=== PATIENT | female | born 2005 | race Caucasian/White ===

== ENCOUNTER 2025-05-02 17:54 | Observation (INO) | payer OTHER, SELFPAY ==
--- NOTE | ~2025-05-02 | CT_ITS ---
CT abdomen pelvis w con INDICATION:ALL OVER ABDOMEN PAIN X 4 HOURS/NAUSEA . COMPARISON: None. TECHNIQUE: Axial images of the abdomen and pelvis were obtained following infusion of 100 mL Isovue 300. Dose optimization technique was utilized. FINDINGS: The lung bases are clear. There is severe periportal edema. No intrahepatic mass or ductal dilatation is evident. Gallbladder is contracted. There is pericholecystic fluid. The pancreas and spleen are normal in appearance. The adrenal glands are symmetric in size. The kidneys demonstrate symmetric uptake and excretion of contrast. No cystic mass is evident. There is no solid mass. There is no hydronephrosis. Evaluation of the stomach and bowel loops are limited due to lack of oral contrast. The appendix is normal in appearance. The bladder and rectum are normal. The uterus and both adnexa are unremarkable. No free intraperitoneal fluid or air is evident. There is no significant retroperitoneal lymphadenopathy. The aorta, visceral vessels and renal arteries demonstrate normal caliber and patency. The lower thoracic and lumbar vertebrae are in normal alignment. IMPRESSION: Extensive periportal edema. There is pericholecystic fluid. Gallbladder is contracted and no gallstones are seen. All CT scans at this facility are performed using low dose modulation techniques as appropriate to perform exam including the following: automated exposure control; use of iterative reconstruction technique; adjustment of the mA and/or kV according to patient size (this includes techniques or standardized protocols for targeted exams where dose is matched to indication/reason for exam). Reviewed, dictated and finalized at location S. RAIL HELPER IMPRESSION: Extensive periportal edema. There is pericholecystic fluid. Gallbladder is contracted and no gallstones are seen. All CT scans at this facility are performed using low dose modulation techniqu es as appropriate to perform exam including the following: automated exposure c ontrol; use of iterative reconstruction technique; adjustment of the mA and/or kV according to patient size (this includes techniques or standardized protocol s for targeted exams where dose is matched to indication/reason for exam).
[2025-05-02 17:55] VITALS: BP 115/78; PULSE 78; RESP 19; TEMP 36.8; O2SAT 100
--- NOTE | 2025-05-02 18:03 | ED_ITS ---
HPI - Nausea/Vomiting/Diarrhea General Chief complaint: Nausea/Vomiting/Diarrhea Stated complaint: vomiting Time Seen by Provider: 05/02/25 18:03 Source: patient Mode of arrival: ambulatory Limitations: no limitations History of Present Illness HPI Narrative: 19 years old white female came to the ED from home by private car with her mom telling me that she started having suprapubic abdominal pain and frequent vomiting over the last 3 hours associated with hot/cold feeling. Patient unable to keep anything down. Currently complaining of sore throat. Patient started her period today, does not know if she had diarrhea or not. Related Data Home Medications ?Medication ?Instructions ?Recorded ?Confirmed ?Last Taken ?Type No Home Medications 05/02/25 05/02/25 U nknown History Allergies Allergy/AdvReac Type Severity Reaction Status Date / Time No Known Allergies Allergy Verified 05/02/25 17:59 Review of Systems 2 Review of Systems: All systems reviewed & are unremarkable except as noted in HPI and below Exam 2 Narrative: General appearance: Well-developed, well-nourished Skin: Pale Head: Normocephalic, nontraumatic Eyes: Clear conjunctiva ENT: Oropharyngeal erythema Neck: Supple, nontender Chest and respiratory: Airway patent, no respiratory distress, no accessory muscle use Heart: Regular rate/rhythm Abdomen: Diffuse abdominal tenderness, quite bowel sounds, no guarding or rebound Musculoskeletal: Normal range of motion, nontender back Neurologic: Alert and oriented ?3, SOLE SPLITTER is normal as tested, no gross motor deficit Course Vital Signs Vital signs: Vital Signs Temperature 36.8 C 05/02/25 17:55 Pulse Rate 78 05/02/25 17:55 Respiratory Rate 19 05/02/25 17:55 Blood Pressure 115/78 05/02/25 17:55 Pulse Oximetry 100 05/02/25 17:55 Oxygen Delivery Room Air 05/02/25 17:55 Temperature 36.7 C 05/02/25 19:49 Pulse Rate 98 05/02/25 19:49 Respiratory Rate 20 05/02/25 19:49 Blood Pressure 114/75 05/02/25 19:49 Pulse Oximetry 100 05/02/25 19:49 Oxygen Delivery Room Air 05/02/25 19:49 MDM - Nausea/Vomiting/Diarrhea MDM Narrative Medical decision making narrative: Patient came with nausea vomiting abdominal pain sore throat started 3-4 hour prior to arrival Vital signs are stable Physical examination showing ill looking patient, pale with diffuse abdominal tenderness Differential diagnosis viral infection, dehydration, electrolyte imbalance, colitis, diverticulitis, urinary tract infection, , anemia Blood workup today includes CBC, CMP, lipase showed WBC 16.8, otherwise within normal limit Patient tested negative for COVID flu and RSV Patient tested negative for strep throat and mono. CT abdomen and pelvis with IV contrast showed pericholecystic fluid. Gallbladder is contracted and no gallstones seen, extensive periportal edema which can be see in healthy individual after conception large amount of fluid. Other causes congestive heart failure, hepatitis, pyelonephritis, lymphoma, trauma which ruled out by our workup today, obstruction of the portal vein ruled out by our workup today. Urinalysis showed no significant abnormality DIAGNOSIS: VOMITING PATIENT WAS NOT ABLE TO KEEP FLUIDS OR CRACKERS DOWN, ADMIT TO HOSPITALIST, OBSERVATION. Differential Diagnosis Differential diagnosis: Likely other (As above) Medical Records Attestation: I reviewed the patient's medical records. Lab Data Attestation: I reviewed the patient's lab results. 05/02/25 18:22 05/02/25 18:22 Labs: Lab Results 05/02/25 05/02/25 05/02/25 Range/Units 18:10 18:21 18:22 WBC 16.8 H (4.8-10.8) K/mm3 RBC 3.92 L (4.20-5.40) M/mm3 Hgb 11.6 L (12.0-15.0) g/dL Hct 35.3 (35.0-49.0) % MCV 90.1 (78.0-102.0) fL MCH 29.6 (27.0-31.0) pg MCHC 32.9 (32-36) g/dL RDW 12.1 (11.6-14.4) % Plt Count 221 (150-420) K/mm3 MPV 10.9 (9.2-11.8) fl Immature Gran % (Auto) 0.5 H (0.0-0.0) % Neut % (Auto) 87.9 H (50.0-70.0) % Lymph % (Auto) 5.9 L (18.0-42.0) % [place] % (Auto) 5.2 (2.0-11.0) % Eos % (Auto) 0.3 L (1.0-6.0) % Baso % (Auto) 0.2 (0.0-1.0) % Lymph # (Auto) 0.99 L (1.10-4.50) K/mm3 [place] # (Auto) 0.88 (0.10-0.90) K/mm3 Eos # (Auto) 0.05 (0.02-0.50) K/mm3 Baso # (Auto) 0.04 (0.00-0.10) K/mm3 Abs Immat Gran (auto) 0.09 H (0.00-0.00) K/mm3 Absolute Neuts (auto) 14.72 H (1.70-7.20) K/mm3 Absolute Nucleated RBC 0.00 (0.00-0.00) K/mm3 Nucleated RBC % 0.0 (0-0.0) % Sodium 140 (134-143) mmol/L Potassium 3.4 (3.4-5.0) mmol/L Chloride 109 H (98-107) mmol/L Carbon Dioxide 21 L (22-30) mmol/L Anion Gap 10 (4-12) mmol/L BUN 8 (8-21) mg/dL Creatinine 0.82 (0.7-1.0) mg/dL Estim Creat Clear Calc 75 ml/min Estimated GFR > 60 (59 - ) Glucose 125 H (65-110) mg/dL Calculated Osmolality 289 (285-295) mOsm/kg Calcium 9.0 (8.9-10.7) mg/dL Total Bilirubin 1.5 H (0.2-1.3) mg/dL AST 35 (14-36) U/L ALT 22 (6-35) U/L Alkaline Phosphatase 43 L (45-116) U/L Total Protein 7.6 (6.3-8.6) g/dL Albumin 4.8 (3.7-5.6) g/dL Lipase 84 (23-300) U/L Serum HCG, Qual Negative Urine Color Light yellow (Yellow) Urine Appearance Clear (Clear) Urine pH 6.0 (5.0-8.0) Ur Specific [place] 1.015 (1.010-1.020) Urine Protein Trace H (Negative) Urine Glucose (UA) Negative (Negative) Urine Ketones Trace H (Negative) Ur Blood (Man) 1+ H (Negative) Urine Nitrate Negative (Negative) Urine Bilirubin Negative (Negative) Urine Urobilinogen 0.2 (0.2-1.0) mg/dL Leukocyte Esterase Rfl Negative (Negative) JORGE L/UL Urine RBC None seen (0-2) /hpf Urine WBC 0-3 (0-3) /hpf Ur Squamous Epith Cells Few (Few) /hpf Urine Bacteria Trace (None) /hpf Monoscreen Negative (Negative) Influenza A (RT-PCR) Negative (Negative) Influenza B (RT-PCR) Negative (Negative) RSV (RT-PCR) Negative (Negative) SARS-CoV-2 RNA (RT-PCR) Negative (Negative) Group A Strep (PCR) Not detected (Negative) Discharge Plan Discharge Clinical Impression: Vomiting Patient Disposition: Still a Patient Condition: Guarded Prognosis Additional Instructions: ADMIT TO HOSPITALIST Patient Language: [place] Prescriptions: No Action No Home Medications Follow-up/Referrals: UNKNOWN,DOCTOR [Non-Staff]
[2025-05-02] MEDS: ONDANSETRON INJ 4 MG/2 ML VIAL 8 MG IV PUSH (18:28)
[2025-05-02] MEDS: SODIUM CHLORIDE 0.9% IV 1,000 ML 999 ML IV CONT (18:28)
--- NOTE | 2025-05-02 18:32 | PC.NURSE ---
Covid culture sent to lab
--- OUTSIDE RECORDS SUMMARY | 2025-05-02 18:32 | XMS_ITS | Clinical Summary ---
Author Organization [facility] Address [address] [place] [address] Care Team Providers Care Neonatal Critical Care Nurse Name Role Phone Unavailable Primary Care Provider Unavailabl e Source Comments [facility],non-owned Affiliates and Associated Physician Practices is amultiple site organization consisting of ambulatory clinics and hospital sitesin [place], [place], [place] and [place]. This disclosure is being madepursuant to the Care Everywhere program and may not contain all information available regarding this patient. Last updated 18.[facility] [employer] Allergies No known active allergies Medications * Be aware that medications may not be up to date on this document. Alwaysverify current medications with the patient. No known medications Social History Tobacco Use Types Packs/Day Years Used Date Smoking Tobacco: Never Smokeless Tobacco: Never Comments Unknown Sex and Gender Information Value Date Recorded Sex Assigned at Not on file Legal Sex Female 5:44 AM [employer] SU[employer] Gender Identity Not on file Sexual Orientation Not on file Last Filed Vital Signs Vital Sign Reading Time Taken Comments Blood Pressure 90/56 12/01/2017 2:42 PM CDT Pulse 82 12/01/2017 2:42 PM CDT Temperature 36.7 C (98.1 F) 12/01/2017 2:42 PM CDT Respiratory Rate 20 12/01/2017 2:42 PM CDT Oxygen Saturation 98% 12/01/2017 2:42 PM CDT Inhaled Oxygen Concentration - - Weight 37.2 kg (82 lb) 12/01/2017 2:42 PM CDT Height 142 cm (4' 7.91) 12/01/2017 2:42 PM CDT Body Mass Index 18.45 12/01/2017 2:42 PM CDT Body Mass Index Percentile 50.40% 12/01/2017 2:4 2 PM CDT Growth Chart: [facility] (Girls, 2- 20 Years) Plan of Treatment Health Maintenance Due Date Last Done Comments HIV SCREENING 2020 HPV VACCINE (1 - 3-dose series) 2020 CHLAMYDIA/GONORRHEA SCREENING 2021 MENINGOCOCCAL (Group B) VACC INE SHARED DECISION-MAKING (1 of 2 - Standard) 2021 HEPATITIS C SCREENING 05/12/2023 DTAP/TDAP/TD VACCINES (1 - Tdap) 2024 HEPATITIS B VACCINE (1 of 3 - 19+ 3-dose series) 2024 DEPRESSION SCREENING 06/30/2024 COVID-19 VACCINE (1 - 2023-2 5 season) 2025 INFLUENZA VACCINE (#1) 2025 ZOSTER VACCINE (1 of 2) 2055 HIB VACCINE Aged Out No longer eligi ble based on patient's age to complete this topic MENINGOCOCCAL GROUPS A/C/Y/W VACCINE Aged Out No longer eligible b ased on patient's age to complete this topic PNEUMOCOCCAL VACCINE Aged Out No long er eligible based on patient's age to complete this topic
[2025-05-02 18:34] LABS: Hematocrit 35.3 % (35.0-49.0); Hemoglobin 11.6 g/dL (12.0-15.0); Immature Granulocyte Percent A 0.5 % (0.0-0.0); Lymphocytes Absolute Auto 0.99 K/mm3 (1.10-4.50); Mean Corpuscular HGB Conc 32.9 g/dL (32-36); Mean Corpuscular Hemoglobin 29.6 pg (27.0-31.0); Mean Corpuscular Volume 90.1 fL (78.0-102.0); Nucleated Red Blood Cells Absolute Auto 0.00 K/mm3 (0.00-0.00); Nucleated Red Blood Cells Perc 0.0 % (0-0.0); Platelet Count Result 221 K/mm3 (150-420); Red Blood Count 3.92 M/mm3 (4.20-5.40); White Blood Count 16.8 K/mm3 (4.8-10.8)
[2025-05-02 18:39] LABS: Add Urine Microscopic? YES; Appearance Urine Clear (Clear); Glucose Urine UA Negative (Negative); Leukocyte Esterase Ur Negative LEU/UL (Negative); Nitrate Urine Negative (Negative); Specific Grav Ur 1.015 (1.010-1.020)
[2025-05-02 18:52] LABS: Alanine Aminotransferase 22 U/L (6-35); Albumin Level 4.8 g/dL (3.7-5.6); Alkaline Phosphatase 43 U/L (45-116); Anion Gap 10 mmol/L (4-12); Aspartate Amino Transferase 35 U/L (14-36); Bilirubin,Total 1.5 mg/dL (0.2-1.3); Blood Urea Nitrogen 8 mg/dL (8-21); Calcium 9.0 mg/dL (8.9-10.7); Carbon Dioxide 21 mmol/L (22-30); Chloride 109 mmol/L (98-107); Estimated CRCL calculation 75 ml/min; Estimated Glomerular Filt Rate > 60; Glucose 125 mg/dL (65-110); Lipase 84 U/L (23-300); Osmolality Calculated 289 mOsm/kg (285-295); Potassium 3.4 mmol/L (3.4-5.0); SPREG INTERNAL CONTROL Positive; Serum Qual hCG Negative; Sodium 140 mmol/L (134-143); Total Protein 7.6 g/dL (6.3-8.6)
[2025-05-02 18:54] LABS: Negative Monotest Control Negative (Negative); Positive Monotest Control Positive (Positive)
[2025-05-02 19:07] LABS: Strep Group A RT-PCR NOT DETECTED (Negative)
--- NOTE | 2025-05-02 19:07 | PC.NURSE ---
Report received, pt resting w/mom at bedside. Fluids complete, awaiting CT scan as per order.
[2025-05-02 19:13] LABS: Influenza A QL RT-PCR Negative (Negative); Influenza B QL RT-PCR Negative (Negative); RSV RNA, RT-PCR Negative (Negative); SARS-CoV-2 RNA PCR Negative (Negative)
--- NOTE | 2025-05-02 19:48 | PC.NURSE ---
ERp Dr Awad in to speak w/ pt and her mother, pt still c/o feeling weak and nauseated. Dr ordered to give pt a few saltine crackers and drink to see if pt is able to tolerate keeping it down. If able POC to send home, if still nauseated or vomiting, pt will be admitted. Pt given saltine crackers and white soda to sip on.
[2025-05-02 19:49] VITALS: BP 114/75; PULSE 98; RESP 20; TEMP 36.7; O2SAT 100
--- NOTE | 2025-05-02 21:25 | PC.NURSE ---
Pt c/o still not feeling well, she is pale in color and weak and unable to keep much food or drink down w/o feeling very nauseated, pt wanting to stay for admission overnight. Dr Awad informed, pt will be 23 hr obs.
[2025-05-02] MEDS: METOCLOPRAMIDE HCL INJ 10 MG/2 ML VIAL IV PUSH (21:35)
[2025-05-02] MEDS: SODIUM CHLORIDE 0.9% IV 1,000 ML 100 ML IV CONT (21:39)
--- NOTE | 2025-05-02 21:47 | PC.NURSE ---
Called report to LE[facility] Echevarria on 2nd floor, pt will go to rm 205.
--- NOTE | 2025-05-02 21:49 | PC.NURSE ---
Call placed to ED, given room 205 for admission, awaiting patient.
[2025-05-02 22:20] VITALS: BP 110/64; PULSE 100; RESP 20; TEMP 36.6; O2SAT 98; BMI 19.3
--- NOTE | 2025-05-02 22:28 | ADMGEN ---
This patient, Osiris Thurston, was admitted to 2nd Floor Room 205-1. Patient/family oriented to hospital policies and general routines including ID bracelet, bed and alarms, visiting hours, pain management, procedures, bathroom and other care routines, personal items, smoking policy, room service/diet, and visiting hours. Information on how to activate the Rapid Response Team has been discussed. Patient/Family are encouraged to report perceived risks to care and to ask questions if they do not understand what they are told or what they should do.
[2025-05-02 22:33] VITALS: PULSE 98; RESP 20; O2SAT 100
[2025-05-03] VITALS: BP 122/73; PULSE 76; RESP 18; TEMP 37.2; O2SAT 100
[2025-05-03] MEDS: ONDANSETRON INJ 4 MG/2 ML VIAL IV PUSH (00:12)
--- NOTE | 2025-05-03 07:08 | PC.NURSE ---
Patient refuses another bag of NS at this time, wants to wait until she speaks to SALES AND SERVICE REPRESENTATIVE r/t no N/V through the night.
--- NOTE | 2025-05-03 07:31 | P.HP_ITS ---
H&P: HPI History of Present Illness Date/Time: 05/03/25 07:31 [facility] Social History Social History Smoking status: Never smoker Second hand tobacco smoke exposure: No Alcohol intake: never Substance use: current Substance use type: does not use Lack of Transportation: No Lack of Food: Never True Current Housing: I Have Housing Concerned About Future Housing: No Difficulty Paying Gas/Electric Bills: No Difficulty Paying for Meds: No Currently Unemployed: No Education: High School Diploma/GED Difficulty w/ Childcare or Family Care: No Spiritual care concerns: No Meds Home Medications and Allergies Home Medications ?Medication ?Instructions ?Recorded ?Confirmed ?Type No Home Medications 05/02/25 05/02/25 H istory Allergies Allergy/AdvReac Type Severity Reaction Status Date / Time No Known Allergies Allergy Verified 05/02/25 22:28 Vital Signs Vital Signs - 24 hr 05/02/25 17:55 05/02/25 19:49 05/02/25 22:20 Temperature 98.2 F 98.0 F 98 F Pulse Rate 78 98 100 Respiratory Rate 19 20 20 Blood Pressure 115/78 114/75 110/64 Pulse Oximetry 100 100 98 Oxygen Delivery Room Air Room Air Room Air 05/02/25 22:33 05/03/25 00:00 Temperature 98.9 F Pulse Rate 98 76 Respiratory Rate 20 18 Blood Pressure 122/73 Pulse Oximetry 100 100 Oxygen Delivery Room Air Room Air H&P: Results Labs Labs: Short CBC 05/02/25 Range/Units 18:22 WBC 16.8 H (4.8-10.8) K/mm3 Hgb 11.6 L (12.0-15.0) g/dL Hct 35.3 (35.0-49.0) % Plt Count 221 (150-420) K/mm3 BMP 05/02/25 18:22 Sodium 140 Potassium 3.4 Chloride 109 H Carbon Dioxide 21 L BUN 8 Creatinine 0.82 Glucose 125 H Calcium 9.0 Liver Function 05/02/25 Range/Units 18:22 Total Bilirubin 1.5 H (0.2-1.3) mg/dL AST 35 (14-36) U/L ALT 22 (6-35) U/L Alkaline Phosphatase 43 L (45-116) U/L Albumin 4.8 (3.7-5.6) g/dL Urine 05/02/25 Range/Units 18:10 Urine Color Light yellow (Yellow) Urine Appearance Clear (Clear) Urine pH 6.0 (5.0-8.0) Ur Specific [place] 1.015 (1.010-1.020) Urine Protein Trace H (Negative) Urine Glucose (UA) Negative (Negative)
[2025-05-03 07:50] LABS: Hematocrit 32.4 % (35.0-49.0); Hemoglobin 10.7 g/dL (12.0-15.0); Immature Granulocyte Percent A 0.4 % (0.0-0.0); Lymphocytes Absolute Auto 1.08 K/mm3 (1.10-4.50); Mean Corpuscular HGB Conc 33.0 g/dL (32-36); Mean Corpuscular Hemoglobin 29.7 pg (27.0-31.0); Mean Corpuscular Volume 90.0 fL (78.0-102.0); Nucleated Red Blood Cells Absolute Auto 0.00 K/mm3 (0.00-0.00); Nucleated Red Blood Cells Perc 0.0 % (0-0.0); Platelet Count Result 180 K/mm3 (150-420); Red Blood Count 3.60 M/mm3 (4.20-5.40); White Blood Count 9.5 K/mm3 (4.8-10.8)
[2025-05-03 08:02] LABS: Alanine Aminotransferase 19 U/L (6-35); Albumin Level 4.3 g/dL (3.7-5.6); Alkaline Phosphatase 41 U/L (45-116); Anion Gap 8 mmol/L (4-12); Aspartate Amino Transferase 28 U/L (14-36); Bilirubin,Total 1.7 mg/dL (0.2-1.3); Blood Urea Nitrogen 8 mg/dL (8-21); Calcium 8.6 mg/dL (8.9-10.7); Carbon Dioxide 24 mmol/L (22-30); Chloride 110 mmol/L (98-107); Estimated CRCL calculation 71 ml/min; Estimated Glomerular Filt Rate > 60; Glucose 103 mg/dL (65-110); Osmolality Calculated 292 mOsm/kg (285-295); Potassium 3.7 mmol/L (3.4-5.0); Sodium 142 mmol/L (134-143); Total Protein 6.8 g/dL (6.3-8.6)
--- NOTE | 2025-05-03 08:47 | PM.SD2 ---
Same Day Admit/Disch: HPI History of Present Illness Chief complaint: vomiting Narrative: Osiris Thurston is a 19 year old female With no past medical history presented to the ER due to suprapubic abdominal infrequent vomiting started about 3 yesterday. Patient reported that she started her period that day but denied any Other complaints. in the ER the patient's lab work showed WBC 16.8, bilirubin 1.5, serum hCG negative, UA negative for infection, rapid COVID/flu/ RSV swab negative. patient had a CT abdomen pelvis which showed extensive periportal edema,. Cholecystic fluid, gallbladder is contracted and no gallstones are seen. Patient was given IV fluids and IV antiemetics. Patient was unable to hold fluids down. Patient was admitted for further observation. [facility] Social History Social History Smoking status: Never smoker Second hand tobacco smoke exposure: No Alcohol intake: never Substance use: current Substance use type: does not use Lack of Transportation: No Lack of Food: Never True Current Housing: I Have Housing Concerned About Future Housing: No Difficulty Paying Gas/Electric Bills: No Difficulty Paying for Meds: No Currently Unemployed: No Education: High School Diploma/GED Difficulty w/ Childcare or Family Care: No Spiritual care concerns: No Same Day Admit/Disch: Med Pre-admit Medications Home Medications ?Medication ?Instructions ?Recorded ?Confirmed ?Type ondansetron 4 mg disintegrating 4 mg PO Q8H PRN nausea and 05/03/25 Rx tablet vomiting #10 tabs Review of Systems Review of Systems All systems reviewed & are unremarkable except as noted in HPI and below Exam Const: General: comfortable and no acute distress HENMT: Face/Nose/Sinus: Normal nares present Mouth: Yes moist mucous membranes Eyes: General: appearance normal, both eyes and all related structures Sclera: sclerae normal Neck: Neck: supple Resp: Effort & Inspection: normal respiratory effort Auscultation: clear to auscultation bilaterally Cardio: Rate: regular rate Rhythm: regular rhythm GI: GI Palp: Yes Soft to palpation Auscultation: normal bowel sounds Skin: General skin exam: normal color and no rashes or lesions noted Neuro: General: gait normal Speech: normal speech Motor exam (neuro): 5/5 motor strength present throughout Sensory Exam: normal sensation Extrem: General: normal to inspection Psych: Mental Status: mental status grossly normal Affect: normal affect DS: Data Data Completed and Pending Labs on day of discharge: Labs from last 24 hours 05/03/25 05/02/25 05/02/25 07:43 18:22 18:21 WBC 9.5 16.8 H RBC 3.60 L 3.92 L Hgb 10.7 L 11.6 L Hct 32.4 L 35.3 MCV 90.0 90.1 MCH 29.7 29.6 MCHC 33.0 32.9 RDW 12.4 12.1 Plt Count 180 221 MPV 10.9 10.9 Immature Gran % (Auto) 0.4 H 0.5 H Neut % (Auto) 79.1 H 87.9 H Lymph % (Auto) 11.[address] [place] % (Auto) 9.0 5.2 Eos % (Auto) 0.0 L 0.3 L Baso % (Auto) 0.2 0.2 Lymph # (Auto) 1.[address] [place] # (Auto) 0.86 0.88 Eos # (Auto) 0.00 L 0.05 Baso # (Auto) 0.02 0.04 Abs Immat Gran (auto) 0.04 H 0.09 H Absolute Neuts (auto) 7.53 H 14.72 H Absolute Nucleated RBC 0.00 0.00 Nucleated RBC % 0.0 0.0 Sodium 142 140 Potassium 3.7 3.4 Chloride 110 H 109 H Carbon Dioxide 24 21 L Anion Gap 8 10 BUN 8 8 Creatinine 0.84 0.82 Estim Creat Clear Calc 71 75 Estimated GFR > 60 > 60 Glucose 103 125 H Calculated Osmolality 292 289 Calcium 8.6 L 9.0 Total Bilirubin 1.7 H 1.5 H AST 28 35 ALT 19 22 Alkaline Phosphatase 41 L 43 L Total Protein 6.8 7.6 Albumin 4.3 4.8 Lipase 84 Serum HCG, Qual Negative Urine Color Urine Appearance Urine pH Ur Specific [place] Urine Protein Urine Glucose (UA) Urine Ketones Ur Blood (Man) Urine Nitrate Urine Bilirubin Urine Urobilinogen Leukocyte Esterase Rfl Urine RBC Urine WBC Ur Squamous Epith Cells Urine Bacteria Monoscreen Negative Influenza A (RT-PCR) Negative Influenza B (RT-PCR) Negative RSV (RT-PCR) Negative SARS-CoV-2 RNA (RT-PCR) Negative Group A Strep (PCR) Not detected 05/02/25 18:10 WBC RBC Hgb Hct MCV MCH MCHC RDW Plt Count MPV Immature Gran % (Auto) Neut % (Auto) Lymph % (Auto) [place] % (Auto) Eos % (Auto) Baso % (Auto) Lymph # (Auto) [place] # (Auto) Eos # (Auto) Baso # (Auto) Abs Immat Gran (auto) Absolute Neuts (auto) Absolute Nucleated RBC Nucleated RBC % Sodium Potassium Chloride Carbon Dioxide Anion Gap BUN Creatinine Estim Creat Clear Calc Estimated GFR Glucose Calculated Osmolality Calcium Total Bilirubin AST ALT Alkaline Phosphatase Total Protein Albumin Lipase Serum HCG, Qual Urine Color Light yellow Urine Appearance Clear Urine pH 6.0 Ur Specific [place] 1.015 Urine Protein Trace H Urine Glucose (UA) Negative Urine Ketones Trace H Ur Blood (Man) 1+ H Urine Nitrate Negative Urine Bilirubin Negative Urine Urobilinogen 0.2 Leukocyte Esterase Rfl Negative Urine RBC None seen Urine WBC 0-3 Ur Squamous Epith Cells Few Urine Bacteria Trace Monoscreen Influenza A (RT-PCR) Influenza B (RT-PCR) RSV (RT-PCR) SARS-CoV-2 RNA (RT-PCR) Group A Strep (PCR) Imaging Radiologist's impression: Ordering Physician: Taylor Awad MD Date of Service: 05/02/25 Procedure(s): CT abdomen pelvis w con Accession Number(s): [id number] cc: SUPERVISOR CENTRAL SUPPLY PHYSICIAN; Taylor Awad MD~ CT abdomen pelvis w con INDICATION:ALL OVER ABDOMEN PAIN X 4 HOURS/NAUSEA . COMPARISON: None. TECHNIQUE: Axial images of the abdomen and pelvis were obtained following infusion of 100 mL Isovue 300. Dose optimization technique was utilized. FINDINGS: The lung bases are clear. There is severe periportal edema. No intrahepatic mass or ductal dilatation is evident. Gallbladder is contracted. There is pericholecystic fluid. The pancreas and spleen are normal in appearance. The adrenal glands are symmetric in size. The kidneys demonstrate symmetric uptake and excretion of contrast. No cystic mass is evident. There is no solid mass. There is no hydronephrosis. Evaluation of the stomach and bowel loops are limited due to lack of oral contrast. The appendix is normal in appearance. The bladder and rectum are normal. The uterus and both adnexa are unremarkable. No free intraperitoneal fluid or air is evident. There is no significant retroperitoneal lymphadenopathy. The aorta, visceral vessels and renal arteries demonstrate normal caliber and patency. The lower thoracic and lumbar vertebrae are in normal alignment. IMPRESSION: Extensive periportal edema. There is pericholecystic fluid. Gallbladder is contracted and no gallstones are seen. All CT scans at this facility are performed using low dose modulation techniques as appropriate to perform exam including the following: automated exposure control; use of iterative reconstruction technique; adjustment of the mA and/or kV according to patient size (this includes techniques or standardized protocols for targeted exams where dose is matched to indication/reason for exam). Reviewed, dictated and finalized at location S. EKEEPER SUPERVISOR DS: Summary Hospital Course Reason for hospitalization: Nausea/Vomiting Hospital Course: patient was admitted due to intractable nausea and vomiting that started yesterday. Patient was treated with IV antiemetics and IV fluids. on arrival patient's WBC count was 16.8, no clear signs of infection were identified. Patient has bilirubin level was 1.5. patient's rapid COVID/flu / RSV swab was negative, strep a swab was negative, UA was negative for infection. CT abdomen and pelvis showed extensive periportal edema, pericholecystic fluid, gallbladder is contracted and no gallstones are seen. Patient was placed on a clear liquid diet and advance to a regular diet this morning. Patient tolerated diet without nausea or vomiting. Patient's repeat lab work this morning showed a WBC count WNL at 9.5. Patient's bilirubin level is 1.7. Patient did not have a PCP, care coordination arranged an appointment with Dr. Blair office on Friday May 09, 2025. Patient will need to follow up with her PCP on Friday to have repeat labs to monitor her WBC count and bilirubin level. Patient will also need to follow up with her PCP related to the identify periportal edema for further monitoring and/or evaluation as an outpatient. Patient was discharged home with family. Time Spent with Patient Time attestation: Total time spent providing and/or coordinating discharge services: 35 Minutes DS: Admitting Diagnosis Discharge Date 05/03/2025 Admitting Diagnosis Intractable nausea and vomiting DS: Discharge Diagnosis Discharge Diagnosis (1) Intractable nausea and vomiting: Code(s): R11.2 - Nausea with vomiting, unspecified Status: Acute Assessment and Plan: IV antiemetics Clear liquid, advanced to regular diet Patient tolerating diet this morning IV fluids Patient will discharge home with script for ondansetron as needed Nausea and vomiting most likely due to viral gastroenteritis (2) Dehydration: Code(s): E86.0 - Dehydration Status: Acute Assessment and Plan: due to intractable nausea and vomiting IV antiemetics IV bolus and fluids Patient not regular diet Encourage p.o. fluids Labs reviewed (3) Leukocytosis: Code(s): D72.829 - Elevated white blood cell count, unspecified Status: Acute Assessment and Plan: on patient's WBC was 16.8 No signs infection identified S/p fluids WBC this morning WNL 9.5 Follow up with PCP for repeat monitoring (4) Elevated bilirubin: Code(s): R17 - Unspecified jaundice Status: Acute Assessment and Plan: on arrival patient's bilirubin is 1.5 Repeat this a.m. bilirubin is 1.7 No jaundice noted on exam No history of liver disease, patient denies drinking alcohol or taking Tylenol frequently CT of the abdomen showed extensive periportal edema, patient to follow-up with PCP as outpatient for further monitoring and/or workup Discharge Plan Discharge Attending physician on discharge: Mario Hinojosa Discharging Clinician: Nathalie Anguiano Patient Disposition: Home Activity: as tolerated Diet: as tolerated Discharge Instructions: Please ask your PCP to draw a CBC and CMP and iron studies at your appointment on Friday05/09/2025. Your lab work showed some anemia and an elevated bilirubin level. Further workup by your PCP can be done as an outpatient. Patient Instructions: Antibiotic Form, Ondansetron (By mouth), Dehydration (DC), Acute Nausea and Vomiting (DC) Patient Language: Surinamese Stand Alone Forms: General Discharge Information Follow-up/Referrals: Erika De La Paz NP [Primary Care Provider, [facility]] - 05/09/25 10:15 am Discharge Medications: New ondansetron 4 mg tablet,disintegrating 4 mg PO Q8H PRN (Reason: nausea and vomiting) Qty: 10 0RF Date of admission: 05/02/25 21:24 Primary Care Provider: Erika De La Paz Admitting Provider: Mario Hinojosa Attending physician on admission: Mario Hinojosa Condition: Stable Quality VTE Prophylaxis VTE prophylaxis: mechanical ordered
--- NOTE | 2025-05-03 09:00 | PC.NURSE ---
Patient able to eat full diet without N/V, had no N/V through the night and she states, I have no stomach pain now, I felt better and better as time went on during the night. Lungs even/unlabored, able to ambulate to BR without difficulty, no dizziness stated, Abdomen is soft and nontender, IV patent at this time, Patient informs she is passing gas and did not have BM during stay. Call light within reach, patient AOx4 and able to make needs known. Await further orders.
--- NOTE | 2025-05-03 10:14 | PC.NURSE ---
Addendum entered by Jaimee Thomas RN 05/03/25 10:22: IV catheter removed from right AC without difficulty today at 0958, patient tolerated well. Original Note: Discharge instructions given with medications transmitted and their side effects. Explained when to come back to ED for N/V symptoms and PCP appointment with patient voicing understanding to all instructions. Patient refused WC for discharge, ambulated out of facility with staff and mother by her side. No evidence of distress on discharge.
--- NOTE | 2025-05-05 10:34 | PC.NURSE ---
Discharge call back completed, no questions regarding dc meds or instructions, picked meds up from [facility]
== END 2025-05-03 10:00 | disposition home or self-care (01) ==
LOC: CHSED 21:24 → CHS2ND 21:52
PROVIDERS: Nurse Practitioner Adult Health; Admitting Provider Internal Medicine; Emergency Provider Emergency Medicine; PCP Nurse Practitioner Family; Referring Provider Internal Medicine; Visit Provider Internal Medicine
DX: R11.2 Nausea with vomiting, unspecified (principal); E86.0 Dehydration; D72.829 Elevated white blood cell count, unspecified; R17 Unspecified jaundice; Z20.822 Contact with and (suspected) exposure to COVID-19
CPT/HCPCS: 36415; 74177; 80053; 81001; 83690; 84703; 85025; 86308; 87637; 87651; 96361; 96374; 96375; 99285; G0378; J1200; J2405; J2765; J7030; Q9967

== ENCOUNTER 2025-05-09 10:51 | Outpatient (CLI) | payer OTHER, SELFPAY ==
[2025-05-09 11:13] LABS: Hematocrit 37.1 % (35.0-49.0); Hemoglobin 12.0 g/dL (12.0-15.0); Immature Granulocyte Percent A 0.0 % (0.0-0.0); Lymphocytes Absolute Auto 1.66 K/mm3 (1.10-4.50); Mean Corpuscular HGB Conc 32.3 g/dL (32-36); Mean Corpuscular Hemoglobin 29.5 pg (27.0-31.0); Mean Corpuscular Volume 91.2 fL (78.0-102.0); Nucleated Red Blood Cells Absolute Auto 0.00 K/mm3 (0.00-0.00); Nucleated Red Blood Cells Perc 0.0 % (0-0.0); Platelet Count Result 221 K/mm3 (150-420); Red Blood Count 4.07 M/mm3 (4.20-5.40); White Blood Count 4.3 K/mm3 (4.8-10.8)
[2025-05-09 11:27] LABS: Partial Thromboplastin Time 25.9 Sec (23.9-30.70)
[2025-05-09 11:33] LABS: Iron 44 ug/dL (37-170)
[2025-05-09 11:35] LABS: Alanine Aminotransferase 17 U/L (6-35); Albumin Level 5.0 g/dL (3.7-5.6); Alkaline Phosphatase 43 U/L (45-116); Anion Gap 11 mmol/L (4-12); Aspartate Amino Transferase 24 U/L (14-36); Bilirubin,Total 1.2 mg/dL (0.2-1.3); Blood Urea Nitrogen 11 mg/dL (8-21); Calcium 9.3 mg/dL (8.9-10.7); Carbon Dioxide 26 mmol/L (22-30); Chloride 106 mmol/L (98-107); Estimated Glomerular Filt Rate > 60; Glucose 75 mg/dL (65-110); Osmolality Calculated 294 mOsm/kg (285-295); Potassium 3.8 mmol/L (3.4-5.0); Sodium 143 mmol/L (134-143); Total Protein 7.8 g/dL (6.3-8.6)
--- OUTSIDE RECORDS SUMMARY | 2025-05-09 11:36 | XMS_ITS | Clinical Summary ---
Author Organization [facility] Address [address] [place] [address] Care Team Providers Care Taper Machine Name Role Phone Unavailable Primary Care Provider Unavailabl e Source Comments [facility],non-owned Affiliates and Associated Physician Practices is amultiple site organization consisting of ambulatory clinics and hospital sitesin [place], [place], [place] and [place]. This disclosure is being madepursuant to the Care Everywhere program and may not contain all information available regarding this patient. 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
[2025-05-09 11:43] LABS: Percent Iron Saturation 11 % (20-50)
[2025-05-09 12:10] LABS: Ferritin 7.89 ng/mL (6.24-137)
[2025-05-10 11:13] LABS: Hepatitis B Surface Antigen Negative (Negative)
[2025-05-10 11:19] LABS: HAV RESULT Negative (Negative); Hepatitis B Core IgM Result Negative (Negative)
== END 2025-05-09 10:52 | disposition home or self-care (01) ==
LOC: CHSLAB 10:52
PROVIDERS: PCP Nurse Practitioner Family; Visit Provider Nurse Practitioner Family
DX: I10 Essential (primary) hypertension (principal); R17 Unspecified jaundice; D72.829 Elevated white blood cell count, unspecified; D64.9 Anemia, unspecified
CPT/HCPCS: 36415; 80053; 80074; 82728; 83540; 83550; 85025; 85730